=== PATIENT | male | born 1985 | race American Indian/Alaskan Native ===

== ENCOUNTER 2019-06-13 12:58 | Emergency (ER) | payer SELFPAY ==
--- NOTE | 2019-06-13 13:35 | Event Note ---
ED Screening Note ED Screening Note: pt presents with tingling in the left arm and left leg for 4 days no neck pain or back pain PMHx HTN, does not take his medication This initial assessment/diagnostic orders/clinical plan/treatment(s) is/are subject to change based on patients health status, clinical progression and re- assessment by fellow clinical providers in the ED. Further treatment and workup at subsequent clinical providers discretion. Patient/guardian urged not to elope from the ED as their condition may be serious if not clinically assessed and managed. Initial orders include: CT head, basic labs
[2019-06-13 14:15] LABS: Basophils % (Auto) 0.5 % (0.0-1.8); Eosinophils # (Auto) 0.2 K/mm3 (0.0-0.4); Eosinophils % (Auto) 4.9 % (0.0-4.3); Hematocrit 46.7 % (35.5-45.6); Hemoglobin 15.4 gm/dl (11.8-15.2); Lymphocytes # (Auto) 1.9 K/mm3 (1.2-5.4); Lymphocytes % (Auto) 41.6 % (13.4-35.0); Mean Corpuscular HGB Conc 33 % (32-34); Mean Corpuscular Volume 86 fl (84-94); Monocytes # (Auto) 0.4 K/mm3 (0.0-0.8); Monocytes % (Auto) 8.8 % (0.0-7.3); Platelet Count 147 K/mm3 (140-440); Red Blood Count 5.41 M/mm3 (3.65-5.03); Red Cell Distribution Width 13.5 % (13.2-15.2)
[2019-06-13 14:24] LABS: BUN/Creatinine Ratio 9; Blood Urea Nitrogen 12 mg/dL (9-20); Calcium 9.6 mg/dL (8.4-10.2); Hemolysis Index 11
--- NOTE | 2019-06-13 15:34 | Emergency Department Report ---
ED General Adult HPI - General Chief complaint: Neuro Symptoms/Deficit Stated complaint: (L) SIDE NUMB Time Seen by Provider: 06/13/19 13:33 Source: patient Mode of arrival: Ambulatory Limitations: No Limitations - History of Present Illness Initial comments: Patient is a 33 years old male with history of hypertension, noncompliant with his medication. Patient presented to the ER complaining of left upper and lower extremity numbness and tingling sensation for the last 3 days. Patient found to have a blood pressure of 214/135. Patient denied any weakness, headache, bowel or bladder incontinence. Patient also denies any chest pain or shortness of breath. -: days(s) (3) Severity scale (0 -10): 4 - Related Data Allergies Allergy/AdvReac Type Severity Reaction Status Date / Time No Known Allergies Allergy Unverified 06/13/19 13:00 ED Review of Systems ROS: Stated complaint: (L) SIDE NUMB Other details as noted in HPI Comment: All other systems reviewed and negative Constitutional: denies: chills, fever Respiratory: denies: cough, orthopnea, shortness of breath, SOB with exertion, SOB at rest, wheezing Cardiovascular: denies: chest pain, palpitations Gastrointestinal: denies: abdominal pain, nausea, vomiting, diarrhea, constipation, hematemesis, melena, hematochezia Genitourinary: denies: urgency, dysuria, frequency, hematuria Musculoskeletal: denies: back pain Neurological: numbness. denies: headache, weakness, paresthesias, confusion, abnormal gait ED Past Medical Hx - Past Medical History Hx Hypertension: Yes - Surgical History Additional Surgical History: RIGHT ARM ED Physical Exam - General Limitations: No Limitations General appearance: alert, in no apparent distress - Head Head exam: Present: atraumatic, normocephalic, normal inspection - Eye Eye exam: Present: normal appearance, PERRL - ENT ENT exam: Present: normal exam, normal orophraynx, mucous membranes moist - Neck Neck exam: Present: normal inspection, full ROM. Absent: tenderness, meningismus, lymphadenopathy, thyromegaly - Respiratory Respiratory exam: Present: normal lung sounds bilaterally. Absent: respiratory distress, wheezes, rales, rhonchi, stridor, chest wall tenderness, accessory muscle use, decreased breath sounds, prolonged expiratory - Cardiovascular Cardiovascular Exam: Present: regular rate, normal rhythm, normal heart sounds - GI/Abdominal GI/Abdominal exam: Present: soft, normal bowel sounds. Absent: distended, tenderness, guarding, rebound, rigid, organomegaly, mass, bruit, pulsatile mass, hernia - Extremities Exam Extremities exam: Present: normal inspection, full ROM, normal capillary refill. Absent: tenderness, pedal edema, joint swelling, calf tenderness - Back Exam Back exam: Present: normal inspection, full ROM. Absent: CVA tenderness (R), CVA tenderness (L), muscle spasm, paraspinal tenderness, vertebral tenderness - Neurological Exam Neurological exam: Present: alert, oriented X3, CN II-XII intact, normal gait, reflexes normal - Psychiatric Psychiatric exam: Present: normal mood - Skin Skin exam: Present: warm, intact, normal color ED Course Vital Signs 06/13/19 06/13/19 06/13/19 13:33 15:32 15:36 Temperature 98.3 F 98.0 F Pulse Rate 64 43 L Respiratory 18 13 13 Rate Blood Pressure 214/135 104/63 [Right] O2 Sat by Pulse 100 100 100 Oximetry ED Medical Decision Making - Lab Data Result diagrams: 06/13/19 13:40 06/13/19 13:40 - Medical Decision Making Patient is a 33 years old male with history of hypertension, noncompliant with his medication. Patient presented to the ER complaining of left upper and lower extremity numbness and tingling sensation for the last 3 days. Patient found to have a blood pressure of 214/135. Patient denied any weakness, headache, bowel or bladder incontinence. Patient also denies any chest pain or shortness of breath. Patient signed AGAINST MEDICAL ADVICE. Patient is alert, oriented 3 in no acute distress. Patient blood pressure is 104/64. Patient has a capacity to make a sound decision. After explaining to the patient the risk of leaving AGAINST MEDICAL ADVICE which include permanent disability and patient is still wanted to leave AGAINST MEDICAL ADVICE. Patient still advised to follow- up with his primary care physician in the next 2-3 days and to return to this ER or go to another ER if his symptoms get worse. Critical care attestation.: If time is entered above; I have spent that time in minutes in the direct care of this critically ill patient, excluding procedure time. ED Disposition Clinical Impression: Numbness and tingling, Hypertensive emergency Disposition: DC-07 LEFT AGAINST MED ADVICE Is pt being admited?: No Condition: Stable Instructions: Hypertension (ED), Paresthesia (ED) Forms: AMA Form
[2019-06-13 15:36] VITALS: BP 104/63
== END 2019-06-13 15:57 | disposition left against medical advice (07) ==
LOC: ED 12:58
DX: R20.2 Paresthesia of skin (principal); R20.0 Anesthesia of skin; I16.0 Hypertensive urgency; I10 Essential (primary) hypertension
CPT/HCPCS: 36415; 80048; 85025; 99283